=== PATIENT | female | born 1985 | race Caucasian/White ===

== ENCOUNTER 2017-04-29 00:45 | Emergency (ER) | payer OTHER ==
[~2017-04-29] VITALS: Ht 160 cm; Wt 74.8 kg
[2017-04-29 00:56] VITALS: BP 120/90
--- NOTE | 2017-04-29 01:07 | NUR ---
PT TAKEN TO BED 12.
--- NOTE | 2017-04-29 01:27 | NUR ---
Patient being evaluated by Dr. Acosta at bedside.
[2017-04-29] MEDS ORDERED: METOCLOPRAMIDE 10 MG/2 ML INJ VIAL IVP ONE (01:35)
[2017-04-29] MEDS ORDERED: NACL 0.9% 1,000 ML IV ONE (01:35)
[2017-04-29 01:42] LABS: BASOPHILS # (AUTO) 0.2 K/uL (0.00-0.22); BASOPHILS % (AUTO) 3.1 % (0.0-2.0); EOSINOPHILS # (AUTO) 0.1 K/uL (0-0.4); EOSINOPHILS % (AUTO) 1.8 % (0.0-4.0); HEMATOCRIT 40.2 % (36-48); HEMOGLOBIN 13.2 g/dL (12.0-16.0); LYMPHOCYTES # (AUTO) 2.5 K/uL (2.5-16.5); LYMPHOCYTES % (AUTO) 31.7 % (20.5-51.1); MEAN CORPUSCULAR HEMOGLOBIN 30 pg (27-31); MEAN CORPUSCULAR HGB CONC 33 g/dL (33-37); MEAN CORPUSCULAR VOLUME 92 fL (80-94); MONOCYTES # (AUTO) 0.5 K/uL (0.8-1.0); MONOCYTES % (AUTO) 5.7 % (1.7-9.3); NEUTROPHILS # (AUTO) 4.7 K/uL (1.8-7.7); NEUTROPHILS % (AUTO) 57.7 % (42.2-75.2); PLATELET COUNT (AUTO) 242 K/uL (140-450); RED BLOOD CELL COUNT(AUTO) 4.38 MIL/uL (4.20-5.40); RED CELL DISTRIBUTION WIDTH 11.8 % (11.6-13.7)
[2017-04-29 01:55] LABS: AMYLASE 44 U/L (25-115); ANION GAP 12.9 (8-16); CARBON DIOXIDE 26.7 mmol/L (21-32); CREATININE 0.8 mg/dL (0.6-1.3); LIPASE 110 U/L (73-393); POTASSIUM 3.6 mmol/L (3.5-5.1)
[2017-04-29 02:00] LABS: ALBUMIN 3.7 g/dL (3.4-5.0); TOTAL BILIRUBIN 0.2 mg/dL (0.0-1.0)
[2017-04-29 02:30] LABS: APPEARANCE,URINE SL CLOUDY (CLEAR); BILIRUBIN,URINE NEGATIVE (NEGATIVE); BLOOD, URINE NEGATIVE (NEGATIVE); COLOR,URINE YELLOW (YELLOW); LEUKOCYTE ESTERASE ,URINE NEGATIVE (NEGATIVE); NITRITE, URINE NEGATIVE (NEGATIVE); UGLUCOSE NEGATIVE (NEGATIVE)
--- NOTE | 2017-04-29 02:34 | NUR ---
31Y/F PRESENTS TO ER C/O CHEST PAIN, DIZZINESS, AND NAUSEA. NO PMH, NKA. PT STATES WEDNESDAY SHE BEGAN TO FEEL SYMPTOMS AND HAS BEEN TAKING IBUPROFEN WITH NO RELIEF. AA&O X4, ABD IS FLAT, SOFT, NON TENDER, ACTIVE BS X4, BL LUNG SOUNDS CLEAR THROUGH OUT. PT DENIES SOB, DIARRHEA OR VOMIT. PAIN TO CHEST IS PRESSURE 4/10, RADIATING TO THE BACK SINCE WEDNESDAY. VSS, ER MD NOTIFIED OF PT STATUS, PT IN BED SIDE RAILS UP X1.
[2017-04-29] MEDS ORDERED: KETOROLAC 30 MG/ML VIAL IVP ONE (02:50)
[2017-04-29] MEDS ORDERED: PANTOPRAZOLE 40 MG INJ VIAL IVP ONE (02:50)
[2017-04-29 02:54] LABS: RBC,URINE NONE SEEN /HPF (0-5); WBC,URINE 0-5 (RARE) /HPF (0-5)
--- NOTE | 2017-04-29 02:55 | NUR ---
strep swab negative per lab.
[2017-04-29 03:28] VITALS: BP 121/78
--- NOTE | 2017-04-29 03:28 | NUR ---
Patient discharged with v/s stable. Written and verbal after care instructions given and explained. Patient alert, oriented and verbalized understanding of instructions. Ambulatory with steady gait. All questions addressed prior to discharge. ID band removed. Patient advised to follow up with PMD. Rx of zofran odt 4mg, prilosec 40mg given. Patient educated on indication of medication including possible reaction and side effects. Opportunity to ask questions provided and answered.
== END 2017-04-29 03:28 | disposition home or self-care (01) ==
LOC: MED 00:45
DX: B34.9 Viral infection, unspecified (principal); K29.70 Gastritis, unspecified, without bleeding
CPT/HCPCS: 36415; 80053; 81001; 81025; 82150; 83690; 84484; 85025; 87081; 87449; 87804; 93005; 96361; 96374; 96375; 99285; C9113; J1885; J2765; J7030

== ENCOUNTER 2017-09-22 20:42 | Emergency (ER) | payer OTHER ==
[~2017-09-22] VITALS: Ht 160 cm; Wt 73.5 kg
[2017-09-22 20:44] VITALS: BP 134/90
[2017-09-22 20:50] VITALS: BP 134/90
[2017-09-22 21:24] LABS: BASOPHILS % (AUTO) 0.5 % (0.0-2.0); EOSINOPHILS # (AUTO) 0.1 K/uL (0-0.4); EOSINOPHILS % (AUTO) 0.9 % (0.0-4.0); HEMATOCRIT 40.2 % (36-48); HEMOGLOBIN 13.6 g/dL (12.0-16.0); LYMPHOCYTES # (AUTO) 2.4 K/uL (2.5-16.5); LYMPHOCYTES % (AUTO) 37.3 % (20.5-51.1); MEAN CORPUSCULAR HEMOGLOBIN 31 pg (27-31); MEAN CORPUSCULAR HGB CONC 34 g/dL (33-37); MEAN CORPUSCULAR VOLUME 92.1 fL (80-94); MONOCYTES # (AUTO) 0.5 K/uL (0.8-1.0); MONOCYTES % (AUTO) 7.9 % (1.7-9.3); NEUTROPHILS # (AUTO) 3.4 K/uL (1.8-7.7); NEUTROPHILS % (AUTO) 53.4 % (42.2-75.2); PLATELET COUNT (AUTO) 247 K/uL (140-450); RED BLOOD CELL COUNT(AUTO) 4.37 MIL/uL (4.20-5.40); RED CELL DISTRIBUTION WIDTH 13.1 % (11.6-13.7); WHITE BLOOD COUNT (AUTO) 6.3 K/uL (4.8-10.8)
[2017-09-22 21:31] LABS: ANION GAP 10.1 (8-16); CARBON DIOXIDE 29.7 mmol/L (21-32); CREATININE 0.7 mg/dL (0.6-1.3); POTASSIUM 3.8 mmol/L (3.5-5.1)
[2017-09-22 21:36] LABS: PROTHROMBIN TIME 10.6 secs (10.8-13.4)
[2017-09-22 21:37] LABS: ALBUMIN 4.1 g/dL (3.4-5.0); TOTAL BILIRUBIN 0.2 mg/dL (0.0-1.0)
== END 2017-09-22 22:23 | disposition home or self-care (01) ==
LOC: MED 20:42
DX: R60.9 Edema, unspecified (principal); R03.0 Elevated blood-pressure reading, without diagnosis of hypertension
CPT/HCPCS: 36415; 80053; 85025; 85610; 85730; 93971; 99285; Q0092